=== PATIENT | female | born 1985 | race Caucasian/White ===

== ENCOUNTER 2018-08-18 14:19 | Emergency (ER) | payer OTHER ==
--- NOTE | 2018-08-18 14:37 | ED ---
Overdose HPI - General Chief Complaint: Overdose Stated Complaint: overdose Time Seen by Provider: 08/18/18 14:24 Source: patient, EMS, RN notes reviewed Mode of arrival: EMS Limitations: no limitations - History of Present Illness Initial Comments: This a 32-year-old female presents emergency Department with chief complaint of overdose. Patient reportedly took methadone prior to going to get her methadone at [place]. Patient states that she methadone off the street. Patient was given 4 mg of Narcan by staff. Patient states she has been methadone for last 3 months. She has a history of heroin and methamphetamine abuse. Patient has no complaints. Patient did admit to taking extra methadone. Patient denies suicidal or homicidal ideation. - Related Data Home Medications Medication Instructions Recorded Confirmed Unable To Assess [Unable to Assess] 08/18/18 08/18/18 Allergies Allergy/AdvReac Type Severity Reaction Status Date / Time No Known Allergies Allergy Verified 08/18/18 14:29 Review of Systems ROS Statement: Those systems with pertinent positive or pertinent negative responses have been documented in the HPI. ROS Other: All systems not noted in ROS Statement are negative. Past Medical History Past Medical History: No Reported History Past Surgical History: No Surgical Hx Reported Past Psychological History: No Psychological Hx Reported Smoking Status: Current every day smoker Past Alcohol Use History: None Reported Past Drug Use History: Methamphetamine General Exam Limitations: no limitations General appearance: alert, in no apparent distress Head exam: Present: atraumatic, normocephalic, normal inspection Eye exam: Present: normal appearance, PERRL, EOMI. Absent: scleral icterus, conjunctival injection, periorbital swelling ENT exam: Present: normal exam, normal oropharynx, mucous membranes moist Neck exam: Present: normal inspection, full ROM. Absent: tenderness, meningismus, lymphadenopathy Respiratory exam: Present: normal lung sounds bilaterally. Absent: respiratory distress, wheezes, rales, rhonchi, stridor Cardiovascular Exam: Present: regular rate, normal rhythm, normal heart sounds. Absent: systolic murmur, diastolic murmur, rubs, gallop, clicks Neurological exam: Present: alert, oriented X3, CN II-XII intact Skin exam: Present: warm, dry, intact, normal color. Absent: rash Course Vital Signs 08/18/18 08/18/18 08/18/18 14:37 15:07 15:15 Temperature 98.0 F Pulse Rate 55 L 54 L Respiratory 16 18 16 Rate Blood Pressure 163/87 117/74 O2 Sat by Pulse 98 99 Oximetry 08/18/18 16:29 Temperature Pulse Rate 51 L Respiratory 14 Rate Blood Pressure 115/66 O2 Sat by Pulse Oximetry Medical Decision Making - Medical Decision Making 32-year-old female presented for opiate overdose. Patient was positive for opiates and cocaine. Given Narcan by EMS and emergency department. Patient is awake alert 2. Patient be discharged. - Lab Data Lab Results 08/18/18 Range/Units 15:19 Urine Opiates Screen Detected H (NotDetected) Ur Oxycodone Screen Not Detected (NotDetected) Urine Methadone Screen Not Detected (NotDetected) Ur Propoxyphene Screen Not Detected (NotDetected) Ur Barbiturates Screen Not Detected (NotDetected) U Tricyclic Antidepress Not Detected (NotDetected) Ur Phencyclidine Scrn Not Detected (NotDetected) Ur Amphetamines Screen Not Detected (NotDetected) U Methamphetamines Scrn Not Detected (NotDetected) U Benzodiazepines Scrn Not Detected (NotDetected) Urine Cocaine Screen Detected H (NotDetected) U Marijuana (THC) Screen Not Detected (NotDetected) Disposition Clinical Impression: Opiate overdose Disposition: HOME SELF-CARE Condition: Stable Instructions: Adult Overdose (ED) Additional Instructions: Please return to the Emergency Department if symptoms worsen or any other concerns. Is patient prescribed a controlled substance at d/c from ED?: No Referrals: None,Stated [Primary Care Provider] - 1-2 days Time of Disposition: 16:33
[2018-08-18] MEDS ORDERED: NALOXONE 0.4 MG/ML 10 ML VIAL IM STA ×2 (15:11→16:28)
[2018-08-18] MEDS ORDERED: ONDANSETRON ODT 4 MG TAB PO STA (15:25)
[2018-08-18 15:52] LABS: Amphetamine Screen,Urine Not Detected (NotDetected); Barbiturate Screen,Urine Not Detected (NotDetected); Benzodiazepines Screen,Urine Not Detected (NotDetected); Cocaine Screen,Urine Detected (NotDetected); Methadone Screen, Urine Not Detected (NotDetected); Opiate Screen,Urine Detected (NotDetected); Oxycodone Screen, Urine Not Detected (NotDetected); Phencyclidine Screen,Urine Not Detected (NotDetected); Tricyclic Antidepressant,Urine Not Detected (NotDetected); Urn Cannabinoid Scrn Not Detected (NotDetected)
[2018-08-18 17:35] VITALS: BP 105/62; PULSE 50; RESP 16; TEMP 99
== END 2018-08-18 17:35 | disposition home or self-care (01) ==
LOC: EC 14:19
DX: T40.3X1A Poisoning by methadone, accidental (unintentional), initial encounter (principal); F17.200 Nicotine dependence, unspecified, uncomplicated
CPT/HCPCS: 80306; 99284; 96372 ×2; J2310